=== PATIENT | female | born 1945 | race Caucasian/White ===

== ENCOUNTER 2017-02-16 03:54 | Inpatient (IN) ==
[2017-02-04 09:01] LABS: MANUAL DIFF NEEDED? NO; URINE MICRO REVIEW NEEDED? NO; URINE SOURCE CLEAN CATCH
[2017-02-04 09:18] LABS: BASO% 0.4 % (0.0-0.8); EOS# 0.16 X1000 (0.0-0.7); EOS% 2.3 % (0.0-10.0); HEMATOCRIT 43.1 % (37.0-47.0); HEMOGLOBIN 14.1 g/dL (12.0-16.0); IMM GRAN# 0.03 X1000 (0.0-0.04); IMM GRAN% 0.4 % (0.0-0.5); LYMPH# 1.55 X1000 (1.2-3.4); LYMPH% 22.8 % (20.5-51.1); MCH 30.9 PG (27-31); MCHC 32.7 g/dL (33-37); MCV 94.3 FL (81-99); MONO# 0.69 X1000 (0.11-0.59); MONO% 10.1 % (1.7-9.3); MPV 10.9 FL (7.4-10.4); PLT 178 X1000 (130-400); RBC 4.57 XMIL (4.2-5.4)
[2017-02-04 09:21] LABS: BILIRUBIN URINE NEGATIVE (NEGATIVE); BLOOD URINE NEGATIVE (NEGATIVE); COLOR YELLOW; GLUCOSE URINE NEGATIVE (NEGATIVE); LEUKOCYTES URINE NEGATIVE (NEGATIVE); NITRITE URINE NEGATIVE (NEGATIVE); PROTEIN URINE 30 mg/dL (NEGATIVE); SP GRAVITY URINE 1.023; TURBIDITY URINE CLEAR (CLEAR); UROBILINOGEN URINE 2 mg/dL (NORMAL)
[2017-02-04 09:22] LABS: UR EPITHELIAL CELLS <10 /HPF (<10); URINE BACTERIA NEGATIVE /HPF; URINE RBC <10 /HPF (<10); URINE WBC <10 /HPF (<10)
[2017-02-04 09:29] LABS: INR 1.01; PROTIME 10.6 Seconds (9.2-11.7); PTT 24.7 Seconds (22.0-36.0)
--- NOTE | 2017-02-04 09:30 | EKG Report ---
Test Performed on : 02/04/2017 08:47:37 AM Test Reason : ORDER Blood Pressure : / mmHG Vent. Rate : 076 BPM Atrial Rate : 076 BPM P-R Int : 166 ms QRS Dur : 092 ms QT Int : 402 ms P-R-T Axes : 068 -40 058 degrees QTc Int : 452 ms Normal sinus rhythm. Left axis deviation Abnormal ECG When compared with ECG of 15-AUG-2014 01:49, No significant change was found Confirmed by Rush Lima MD ([id number]) on 02/04/2017 1:33:02 PM
[2017-02-04 09:46] LABS: CALCIUM 9.4 mg/dL (8.8-10.2); POTASSIUM 4.1 mmol/L (3.5-5.1)
[2017-02-16] MEDS ORDERED: DECADRON ONE (10:44)
[2017-02-16] MEDS ORDERED: ZOFRAN ONE (10:44)
[2017-02-16] MEDS ORDERED: XYLOCAINE-MPF 2% ONE ×2 (10:44→11:47)
[2017-02-16] MEDS ORDERED: ROBINUL ONE ×2 (10:44→13:41)
[2017-02-16] MEDS ORDERED: FENTANYL ONE ×2 (10:47→13:59)
[2017-02-16] MEDS ORDERED: VERSED ONE (10:47)
[2017-02-16] MEDS ORDERED: COLACE ONE (11:04)
[2017-02-16] MEDS ORDERED: LYRICA ONE (11:04)
[2017-02-16] MEDS ORDERED: REGLAN ONE (11:04)
[2017-02-16] MEDS ORDERED: PEPCID ONE (11:04)
[2017-02-16] MEDS ORDERED: LR 1,000 ML ONE ×2 (11:05→12:59)
[2017-02-16] MEDS ORDERED: KEFZOL 2 GM/D5W 2 GM/50 ML IVPB ONE (11:05)
[2017-02-16] MEDS ORDERED: CELEBREX ONE (11:05)
[2017-02-16] MEDS ORDERED: QUELICIN (DOSE) ONE (11:46)
[2017-02-16] MEDS ORDERED: SODIUM CHLORIDE 0.9% 10 ML ONE (11:46)
[2017-02-16] MEDS ORDERED: NORCURON ONE (11:46)
[2017-02-16] MEDS ORDERED: DIPRIVAN 1% ONE (11:50)
[2017-02-16] MEDS ORDERED: TORADOL ONE (12:31)
[2017-02-16] MEDS ORDERED: DURAMORPH ONE (12:31)
[2017-02-16] MEDS ORDERED: NEOSPORIN G.U. IRRIGANT ONE (12:32)
[2017-02-16] MEDS ORDERED: EXPAREL 1.3% ONE (12:32)
[2017-02-16] MEDS ORDERED: SODIUM CHLORIDE 0.9% ONE (12:32)
[2017-02-16] MEDS ORDERED: CYKLOKAPRON 1,000 MG/NS 1,000 MG/100 ML IVPB ONE ×2 (12:32→13:37)
[2017-02-16] MEDS ORDERED: SENSORCAINE 0.25%/EPI 1:200,000 ONE (12:36)
[2017-02-16] MEDS ORDERED: VANCOMYCIN ONE (13:08)
[2017-02-16] MEDS ORDERED: OFIRMEV 1000 MG/ISOTONIC SOLN 1,000 MG/100 ML BOTTLE ONE (13:40)
[2017-02-16] MEDS ORDERED: EPHEDRINE ONE (13:43)
[2017-02-16 14:15] LABS: URINE MICRO REVIEW NEEDED? NO; URINE SOURCE CATH
[2017-02-16 14:19] LABS: BILIRUBIN URINE NEGATIVE (NEGATIVE); BLOOD URINE NEGATIVE (NEGATIVE); COLOR STRAW; GLUCOSE URINE NEGATIVE (NEGATIVE); LEUKOCYTES URINE NEGATIVE (NEGATIVE); NITRITE URINE NEGATIVE (NEGATIVE); PH URINE 5.5; PROTEIN URINE NEGATIVE (NEGATIVE); SP GRAVITY URINE 1.001; TURBIDITY URINE CLEAR (CLEAR); UROBILINOGEN URINE NORMAL (NORMAL)
[2017-02-16 14:20] LABS: UR EPITHELIAL CELLS <10 /HPF (<10); URINE BACTERIA NEGATIVE /HPF; URINE RBC <10 /HPF (<10); URINE WBC <10 /HPF (<10)
[2017-02-16] MEDS ORDERED: NEOSTIGMINE ONE (14:32)
[2017-02-16] MEDS ORDERED: AMBIEN PO PRN (16:00)
[2017-02-16] MEDS ORDERED: MILK OF MAGNESIA PO PRN (16:00)
[2017-02-16] MEDS ORDERED: NS 1,000 ML ONE (16:00)
[2017-02-16] MEDS ORDERED: ZOFRAN IV PRN (16:00)
[2017-02-16] MEDS ORDERED: MORPHINE IV PRN (16:00)
[2017-02-16] MEDS: DILAUDID ONE ×3 (16:05→18:35)
[2017-02-16] MEDS: NS 1,000 ML IV SCH (17:05)
[2017-02-16] MEDS ORDERED: LOMOTIL PO PRN (17:14)
[2017-02-16] MEDS ORDERED: XANAX PO PRN (17:14)
--- NOTE | 2017-02-16 19:09 | OPERATIVE NOTE ---
PROCEDURE DATE: 02/16/2017 PREOPERATIVE DIAGNOSIS: Left knee degenerative joint disease. POSTOPERATIVE DIAGNOSIS: Left knee degenerative joint disease. PROCEDURE PERFORMED: Left total knee arthroplasty using a [facility] [employer] size 6 femoral component, size 5 tibial base plate, a 16 mm articular insert, and a 32 mm patellar component. ANESTHESIA: Spinal. SURGEON: Dr. Ross. RIP SAW OPERATOR: Lynsey Bonilla PA-C who is present throughout the case and was critical to assisting with preparing the bone for the implants, placing the implants including removing the cement and wound closure. SECOND RIP SAW OPERATOR: Bassam Leahy RN. COMPLICATIONS: None. BLOOD LOSS: Minimal. DRAINS: Hemovac x1. DESCRIPTION OF PROCEDURE: The patient was brought to the operative suite and placed in supine position. After successful administration of spinal anesthesia a well-padded tourniquet was placed on left proximal thigh. The left lower extremity was prepped and draped in usual sterile fashion. Leg was exsanguinated. Tourniquet insufflated to 350 torr. A longitudinal incision was made beginning at the superior pole of the patella and extended distally to the tibia tuberosity. Dissected sharply through the skin and full-thickness skin flaps were elevated medially and laterally. A medial arthrotomy was made with a vastus snip. The medial capsule was elevated off the medial tibial plateau. The prepatellar fat pad, ACL, PCL, medial meniscus and lateral meniscus were excised. A drill was entered in the center of distal femur. An intramedullary guide was placed, distal cutting block was pinned in place, distal cut was made with the oscillating saw. The femur was sized to a size 6, size 6 cutting block was pinned in place. Anterior cuts, chamfer cuts, posterior condylar cuts made oscillating saw, marginal osteophytes removed with rongeur. Box cutting block was pinned in place. Box cut was made with box osteotome and oscillating saw and posterior condyle osteophytes removed with a curved osteotome and rongeur. Attention then directed tibia. A drill was entered in the center of the tibia, intramedullary guide was placed, alignment was checked with drop angelita referencing off the anterior cortex tibia and the second ray of the foot and taking 4 mm off the low side of the tibia which in this case was medially. The tibial cutting block was pinned in place and the articular surface of the tibial plateau was removed with oscillating saw. The sclerotic bone medially was drilled with a rongeur, medial osteophytes were removed. Flexion-extension gaps were found to be tight medially, a medial release was performed then was balanced at 16 mm in flexion and extension. The tibia was sized to a size 5, a size 5 guide was used for the fin punch. The tibial trial, femoral trial and 16 mm articular insert placed, taken through range of motion found have excellent alignment, balancing, range of motion. Attention was directed to the patella, 9 mm of the articular surface of patella removed with oscillating saw. Patella sized to a size 32, a size 32 guide was used drill peg holes, lateral facet was chamfered 30-45 degrees, patella trial was placed, taken through range of motion found to have excellent patella tracking. All trials were then removed. Knee was copiously irrigated and dried being certain all bone debris was removed. The tibial component, femoral component, patellar component cemented in place excess cement being removed with a [place]. Once the cement had hardened excess cement was again removed with an osteotome. Knee was again copiously irrigated and dried being certain all bone and cement debris removed. The trial articular insert was removed, knee was copiously infiltrated with Exparel including posterior capsule, anterior capsule, medial and lateral collateral ligaments, anterior musculature and subcutaneous tissue and definitive 16 mm articular insert was locked in place. A drain was placed exiting superolaterally and buried in lateral gutter. The knee was again copiously irrigated and dried being certain all bone and cement removed. The medial arthrotomy was closed with a running 0 V-Loc suture, skin edge approximated with 2-0 Vicryl, skin was closed with Prineo. Sterile dressing was applied. The patient tolerated the procedure well without complication. At the end the procedure all counts correct x2. The patient was transferred recovery room stable condition. cc: Kannan Ross MD
[2017-02-16] MEDS: DESYREL PO SCH (21:20)
[2017-02-16] MEDS: LYRICA PO SCH (21:20)
[2017-02-16] MEDS: CELEBREX PO SCH (21:32)
[2017-02-16] MEDS: CARAFATE PO SCH (21:33)
[2017-02-16] MEDS: COLACE PO SCH (21:33)
[2017-02-16] MEDS: PRAVACHOL PO SCH (21:34)
[2017-02-16] MEDS: PERIDEX MT SCH (21:34)
[2017-02-16] MEDS: DETROL PO SCH (21:34)
[2017-02-16] MEDS: ULTRAM PO SCH (21:35)
[2017-02-16] MEDS: TYLENOL PO SCH (21:35)
[2017-02-16] MEDS: KEFZOL 2 GM/D5W 2 GM/50 ML IVPB IV SCH (21:36)
[2017-02-16] MEDS: WELLBUTRIN SR PO SCH (21:36)
[2017-02-17] MEDS: ULTRAM PO SCH ×4 (03:12→21:01)
[2017-02-17] MEDS: NS 1,000 ML IV SCH ×2 (03:12→06:51)
[2017-02-17] MEDS: TYLENOL PO SCH ×4 (03:12→21:02)
[2017-02-17 05:33] LABS: HEMATOCRIT 34.9 % (37.0-47.0); HEMOGLOBIN 11.6 g/dL (12.0-16.0)
[2017-02-17 05:49] LABS: AGAP 10; BUN 15 mg/dL (8-22); CALCIUM 8.4 mg/dL (8.8-10.2); CHLORIDE 109 mmol/L (98-107); COSMO 284; POTASSIUM 4.5 mmol/L (3.5-5.1); SODIUM 141 mmol/L (136-145); TCO2 22 mmol/L (25-35)
[2017-02-17] MEDS: XARELTO PO SCH (05:57)
[2017-02-17] MEDS: PROTONIX PO SCH ×2 (05:57→06:51)
[2017-02-17] MEDS: KEFZOL 2 GM/D5W 2 GM/50 ML IVPB IV SCH (05:57)
[2017-02-17] MEDS: OXY IR PO PRN ×3 (08:00→18:38)
[2017-02-17] MEDS: CELEBREX PO SCH ×2 (08:01→21:02)
[2017-02-17] MEDS: PERIDEX MT SCH ×2 (08:02→21:03)
[2017-02-17] MEDS: CARAFATE PO SCH ×5 (08:02→21:03)
[2017-02-17] MEDS: CYMBALTA PO SCH (08:02)
[2017-02-17] MEDS: COLACE PO SCH ×2 (08:02→21:02)
[2017-02-17] MEDS: WELLBUTRIN SR PO SCH ×2 (08:02→21:02)
[2017-02-17] MEDS: LYRICA PO SCH ×2 (08:12→21:03)
[2017-02-17] MEDS ORDERED: DECADRON IV ONE (09:00)
--- NOTE | 2017-02-17 11:29 | PROGRESS NOTE ---
DATE: 02/17/2017 SUBJECTIVE: Ms. Calhoun is a 71-year-old female who is postoperative day 1 from a left total knee arthroplasty. She states she is doing well and she has no new complaints. OBJECTIVE: General: She is a well-developed, well-nourished female. She is alert, oriented, and cooperative with the examination. She is in no acute distress. Vital Signs: Stable. She is afebrile. Extremities and Integument: She had 165 mL of drainage from her Hemovac. Her wound is clean, dry, and intact, without signs of infection. Her calf is soft. Her left leg is neurovascularly intact. LABORATORY: Her hemoglobin is 11.6 and her hematocrit is 34.9. ASSESSMENT: Postoperative day 1 from a left total knee arthroplasty. PLAN: We will start working with her with physical therapy this morning. We will discontinue her drain, her Millan, and her IV, and we will change her dressing. We will have her go to rehab later this week. Dictated by LINDSAY Dan for Kannan Ross MD cc: LINDSAY Dan MD
[2017-02-17] MEDS: LOPRESSOR PO SCH ×2 (14:00→21:01)
[2017-02-17] MEDS: PRINIVIL PO SCH ×2 (14:00→21:01)
[2017-02-17] MEDS: PRAVACHOL PO SCH (21:02)
[2017-02-17] MEDS: DETROL PO SCH (21:02)
[2017-02-17] MEDS: DESYREL PO SCH (21:03)
[2017-02-18] MEDS: TYLENOL PO SCH ×4 (02:57→21:36)
[2017-02-18] MEDS: ULTRAM PO SCH ×4 (02:57→21:37)
[2017-02-18 05:41] LABS: HEMATOCRIT 29.3 % (37.0-47.0); HEMOGLOBIN 9.5 g/dL (12.0-16.0)
[2017-02-18] MEDS: XARELTO PO SCH (06:59)
[2017-02-18] MEDS: PROTONIX PO SCH (06:59)
[2017-02-18] MEDS: LYRICA PO SCH ×2 (10:11→21:37)
[2017-02-18] MEDS: LOPRESSOR PO SCH (10:12)
[2017-02-18] MEDS: CELEBREX PO SCH ×2 (10:12→21:36)
[2017-02-18] MEDS: PRINIVIL PO SCH (10:12)
[2017-02-18] MEDS: COLACE PO SCH ×2 (10:12→21:37)
[2017-02-18] MEDS: PERIDEX MT SCH ×2 (10:12→21:38)
[2017-02-18] MEDS: WELLBUTRIN SR PO SCH ×2 (10:12→21:36)
[2017-02-18] MEDS: CARAFATE PO SCH ×4 (10:12→21:36)
[2017-02-18] MEDS: CYMBALTA PO SCH (10:16)
--- NOTE | 2017-02-18 13:41 | Diag Imaging Result Doc PS360 ---
EXAM: CHEST-PORTABLE HISTORY: rehab placement TECHNIQUE: Portable upright COMPARISON: 08/15/2014 FINDINGS: The right hemidiaphragm is elevated. The heart is not enlarged. The vessels are not distended. Mild increased interstitial markings in the right costophrenic angle. No pleural effusions identified. There are sutures in the right lung. IMPRESSION: Likely atelectasis in the right costophrenic angle. Electronically signed by Paulino Moore 02/18/2017 1:38 PM
--- NOTE | 2017-02-18 14:11 | PROGRESS NOTE ---
DATE: 02/18/2017 SUBJECTIVE: Tri Calhoun is a 71-year-old female who is postoperative day 2 from a left total knee arthroplasty. She has no complaints. OBJECTIVE: She is a well-developed, well-nourished female. She is alert and cooperative with exam. Vital signs are stable. She is afebrile. Her hematocrit is 29.3%. Her wound is clean, dry, intact, without infection. ASSESSMENT: Stable left total knee arthroplasty. PLAN: Continue working on physical therapy. She will likely go to rehab tomorrow. cc: Kannan Ross MD
[2017-02-18] MEDS: DETROL PO SCH (21:37)
[2017-02-18] MEDS: PRAVACHOL PO SCH (21:37)
[2017-02-18] MEDS: DESYREL PO SCH (21:37)
[2017-02-19] MEDS: TYLENOL PO SCH ×2 (04:42→09:39)
[2017-02-19] MEDS: ULTRAM PO SCH ×2 (04:42→09:41)
[2017-02-19 05:42] LABS: HEMATOCRIT 26.6 % (37.0-47.0); HEMOGLOBIN 8.6 g/dL (12.0-16.0)
[2017-02-19] MEDS: XARELTO PO SCH (06:25)
[2017-02-19] MEDS: PROTONIX PO SCH (06:25)
[2017-02-19] MEDS: CYMBALTA PO SCH (09:40)
[2017-02-19] MEDS: PRINIVIL PO SCH (09:41)
[2017-02-19] MEDS: CELEBREX PO SCH (09:41)
[2017-02-19] MEDS: LOPRESSOR PO SCH (09:41)
[2017-02-19] MEDS: PERIDEX MT SCH (09:41)
[2017-02-19] MEDS: LYRICA PO SCH (09:41)
[2017-02-19] MEDS: WELLBUTRIN SR PO SCH (09:41)
[2017-02-19] MEDS: COLACE PO SCH (09:42)
[2017-02-19] MEDS: CARAFATE PO SCH ×2 (09:42→12:33)
--- NOTE | 2017-02-19 10:23 | DISCHARGE SUMMARY ---
ADMISSION DATE: 02/16/2017 DISCHARGE DATE: 02/19/2017 DISCHARGE DIAGNOSIS: Left knee degenerative joint disease status post left total knee arthroplasty. DISCHARGE MEDICATIONS: See discharge medication list. DISPOSITION: The patient is discharged to rehab. DISCHARGE INSTRUCTIONS: Instructions for total knee arthroplasty protocol and instructed to return to see Dr. Ross next . HOSPITAL COURSE: On the day of admission, patient underwent a left total knee arthroplasty. Her postoperative course was unremarkable. At discharge, she is afebrile, tolerating a regular diet, and ambulating well with physical therapy. Yesterday she walked 500 feet. Her hemoglobin is 8.6. Her hematocrit is 26.6. Her wound is clean, dry, and intact without sign of infection. Her calf is soft. She is discharged to rehab in stable condition with instructions to follow up as described above. Dictated by LINDSAY aDn for Kannan Ross MD cc: LINDSAY Dan MD
[2017-02-19 11:14] VITALS: BP 126/66
[2017-02-19] MEDS: OXY IR PO PRN (12:27)
== END 2017-02-19 14:25 ==
LOC: SURHOLD 03:54 → 4N 13:28
PROVIDERS: ADMIT Orthopaedic Surgery; ATTEND Orthopaedic Surgery